=== PATIENT | female | born 1970 ===

== ENCOUNTER 2023-07-01 08:03 | Outpatient (CLI) | payer OTHER | END 2023-07-01 08:20 | disposition home or self-care (01) | LOC: SONOGRAMA 08:03 | PROVIDERS: ATTEND Obstetrics & Gynecology Obstetrics | DX: N84.0 Polyp of corpus uteri (principal); N93.9 Abnormal uterine and vaginal bleeding, unspecified ==

== ENCOUNTER 2024-07-30 09:02 | Outpatient (CLI) | payer OTHER | END 2024-07-30 09:11 | disposition home or self-care (01) | LOC: SONOGRAMA 09:02 | PROVIDERS: ATTEND Internal Medicine Rheumatology | DX: N84.0 Polyp of corpus uteri (principal) ==